=== PATIENT | male | born 1955 | race Caucasian/White ===

== ENCOUNTER 2016-06-05 06:18 | Day surgery (SDC) | payer OTHER ==
[~2016-06-05] VITALS: Ht 175.3 cm; Wt 81.8 kg
[~2016-06-05 06:18] MED LIST: ACET-327 PO; CYAN250010 PO; DENO120V SQ; FentaNYL CITRATE-PF 100 MCG/2 ML VIAL IVP ONE; KETAMINE HCL 50 MG/ML 10 ML VIAL IVP ONE; MULTIPLE SUPPLEMENTS PO; OMEG100019 PO; OXYC-341 PO; PROPOFOL 1% 20 ML VIAL IVP ONE; SODIUM CHLORIDE 0.9% 1,000 ML IV ONE
[2016-06-05] MEDS ORDERED: SODIUM CHLORIDE 0.9% 1,000 ML IV ONE (06:30)
[2016-06-05 07:08] LABS: EOSINOPHILS # (AUTO) 0.06 K/uL (0.00-0.70); EOSINOPHILS % (AUTO) 1.42 % (1.0-6.0); HEMATOCRIT 29.7 % (41-53); HEMOGLOBIN 9.6 g/dL (13.5-17.5); LYMPHOCYTES # (AUTO) 0.8 K/uL (1.0-4.8); LYMPHOCYTES % (AUTO) 19.2 % (22.0-44.0); MEAN CORPUSCULAR HEMOGLOBIN 29.7 pg (26.0-34.0); MEAN CORPUSCULAR HGB CONC 32.5 G/dL (31.0-37.0); MEAN CORPUSCULAR VOLUME 91 fL (80-100); MONOCYTES # (AUTO) 0.5 K/uL (0.1-1.0); MONOCYTES % (AUTO) 12.2 % (2.0-9.0); NEUTROPHILS # (AUTO) 2.9 K/uL (1.8-7.7); NEUTROPHILS % (AUTO) 67.2 % (40.0-70.0); PLATELET COUNT (AUTO) 118 K/uL (150-450); RED BLOOD CELL COUNT(AUTO) 3.25 MIL/uL (4.50-5.90); RED CELL DISTRIBUTION WIDTH 24.3 % (11.5-14.5); WHITE BLOOD COUNT (AUTO) 4.3 K/uL (4.5-11.0)
[2016-06-05 07:09] LABS: RBC MORPHOLOGY COMMENT ABNORMAL RBC MORPH
[2016-06-05 07:21] LABS: ANION GAP 12 mmol/L (8-16); CALCIUM, TOTAL 8.1 mg/dL (8.8-10.5); CARBON DIOXIDE 22 mmol/L (22-29); CHLORIDE 109 mmol/L (98-107); CREATININE 0.65 mg/dL (0.60-1.30); GLOMERULAR FILTR. RATE CALC > 60 mL/min (>60); INR 1.1 (0.9-1.1); SODIUM SERUM 143 mmol/L (136-145); UREA NITROGEN, BLOOD 15 mg/dL (7-18)
[2016-06-05 07:28] LABS: POTASSIUM 2.9 mmol/L (3.5-5.1)
[2016-06-05] MEDS ORDERED: POTASSIUM CHL 10 MEQ/WATER 50 ML IV ONE ×2 (07:57→08:00)
[2016-06-05] MEDS ORDERED: CIPROFLOXACIN 400 MG/D5% WATER 200 ML IV ONE (08:00)
[2016-06-05] MEDS ORDERED: CeFAZolin 1 GM/DEXTROSE 50 ML IV ONE (08:00)
[2016-06-05] MEDS ORDERED: POTASSIUM CHL 20 MEQ/0.9% NS 1,000 ML IV ONE (08:00)
[2016-06-05] MEDS ORDERED: LIDOCAINE HCL/PF 1% 30 ML VIAL ONE (08:13)
[2016-06-05] MEDS ORDERED: IODIXANOL 320 MG/ML 100 ML VIAL ONE ×2 (08:13→08:54)
[2016-06-05] MEDS ORDERED: SODIUM BICARBONATE 50 MEQ/50 ML VIAL ONE (08:13)
[2016-06-05] MEDS ORDERED: HEPARIN SODIUM 1000 UNITS/NS 500 ML ONE (08:13)
[2016-06-05 08:19] VITALS: BP 135/80
[2016-06-05] MEDS ORDERED: HEPARIN SODIUM 1000 UNITS/NS 500 ML IV ONE (09:45)
[2016-06-05] MEDS ORDERED: LIDOCAINE 1% 30 ML/SOD BICARB 8.4% 4 ML SQ ONE (09:45)
[2016-06-05] MEDS ORDERED: IODIXANOL 320 MG/ML 100 ML VIAL IARTER ONE ×2 (09:45→10:00)
[2016-06-05] MEDS ORDERED: IODIXANOL 320 MG/ML 50 ML VIAL ONE (09:55)
[2016-06-05] MEDS ORDERED: IODIXANOL 320 MG/ML 50 ML VIAL IARTER ONE (10:00)
[2016-06-05 11:04] VITALS: BP 123/75
[2016-06-05] MEDS ORDERED: OxyCODONE HCL/ACETAMINOPHEN 5-325 MG TABLET PO PRN (11:15)
[2016-06-05] MEDS ORDERED: POTASSIUM CHLORIDE 20 MEQ ER TABLET PO PRN (11:15)
[2016-06-05] MEDS ORDERED: PROMETHAZINE HCL 25 MG TABLET PO PRN (11:15)
[2016-06-05] MEDS ORDERED: POTASSIUM CHL 10 MEQ/WATER 50 ML IV PRN (11:15)
[2016-06-05] MEDS ORDERED: ONDANSETRON HCL 4 MG/2 ML VIAL IVP PRN (11:15)
[2016-06-05] MEDS ORDERED: HYDROmorphone 2 MG/ML SYRINGE ONE ×4 (11:22→17:21)
[2016-06-05] MEDS: HYDROmorphone 2 MG/ML SYRINGE IVP PRN ×8 (11:25→17:33)
[2016-06-05] MEDS ORDERED: FentaNYL CITRATE-PF 100 MCG/2 ML VIAL ONE (11:27)
[2016-06-05] MEDS: FentaNYL CITRATE-PF 100 MCG/2 ML VIAL IVP PRN ×2 (11:29→11:34)
[2016-06-05] MEDS ORDERED: MEPERIDINE-PF 25 MG/ML SYRINGE IVP PRN (11:30)
[2016-06-05] MEDS ORDERED: OxyCODONE HCL/ACETAMINOPHEN 5-325 MG TABLET ONE (12:59)
[2016-06-05] MEDS ORDERED: 0.9% SODIUM CHLORIDE 10 ML SYRINGE IVP ONE (17:25)
[2016-06-05] MEDS ORDERED: POTASSIUM CHLORIDE 20 MEQ ER TABLET PO ONE (18:27)
== END 2016-06-05 19:10 | disposition home or self-care (01) ==
LOC: SDS 06:18
PROVIDERS: ATTEND Radiology Diagnostic Radiology
DX: C61 Malignant neoplasm of prostate (principal); N40.0 Benign prostatic hyperplasia without lower urinary tract symptoms; I25.10 Atherosclerotic heart disease of native coronary artery without angina pectoris; K21.9 Gastro-esophageal reflux disease without esophagitis; I25.2 Old myocardial infarction; Z79.01 Long term (current) use of anticoagulants; Z88.8 Allergy status to other drugs, medicaments and biological substances; Z72.89 Other problems related to lifestyle; Z86.79 Personal history of other diseases of the circulatory system; Z86.718 Personal history of other venous thrombosis and embolism; Z95.5 Presence of coronary angioplasty implant and graft
CPT/HCPCS: 36247; 36415; 37242; 71010; 75625; 75736; 75774; 80048; 84132; 85025; 85610; 93005; C1769; C1887 ×3; C1892; J0744; J1170; J1644; J2704; J3010; J3480 ×2; J3490 ×3; J7030; Q9967 ×2